=== PATIENT | female | born 1975 | race Caucasian/White ===

== ENCOUNTER 2023-06-23 19:21 | Emergency (ER) | payer OTHER ==
[2023-06-23] MEDS ORDERED: Sodium Chloride 0.9% 1000 ML 1,000 ML IV STA (20:38)
[2023-06-23] MEDS ORDERED: Zofran 4 MG/2 ML VIAL IV ONE (20:38)
[2023-06-23 20:52] LABS: Absolute Neutrophil Ct (ANC) 15.55 x10^3/uL (1.4-6.9); BASOPHIL % 0.3 % (0.0-0.4); Basophil (Absolute #) 0.05 x10^3/uL (0-0.4); Eosinophil (Absolute #) 0 x10^3/uL (0-0.5); IMMATURE GRAN # 0.09 x10^3u/L (0.00-0.03); IMMATURE GRAN % 0.5 % (0.00-0.4); Lymphocyte (Absolute #) 1.66 x10^3/uL (1.0-4.6); Lymphocytes % 8.8 % (24.0-44.0); Mean Cell Volume 82.6 fL (78-100); Mean Corpuscular Hemoglobin 25.4 pg (26-32); Mean Corpuscular Hgb Concent. 30.8 g/dL (32-36); Mean Platelet Volume 8.6 fL (7.5-11.0); Monocyte (Absolute #) 1.51 x10^3/uL (0.0-1.3); Neutrophil % 82.4 % (36.0-66.0); Platelet Count 556 x10^3/uL (150-450); Red Blood Count 4.72 x10^6/uL (4.1-5.4); Red Cell Distribution Width 14.6 % (11.5-14.0); White Blood Count 18.9 x10^3/uL (4.0-10.5)
[2023-06-23] MEDS ORDERED: Zofran 4 MG/2 ML VIAL ONE (20:55)
[2023-06-23] MEDS ORDERED: Sodium Chloride 0.9% 1000 ML 1,000 ML ONE (20:55)
[2023-06-23 21:06] LABS: ALBUMIN 4.4 g/dL (3.5-5.0); ALKALINE PHOSPHATASE 111 U/L (38-126); AMYLASE 67 U/L (30-110); ANION GAP 16.2 MEQ/L (5-15); BLOOD UREA NITROGEN 17 mg/dL (7-17); CHLORIDE 102 mmol/L (98-107); Calcium 9.3 mg/dL (8.4-10.2); Carbon Dioxide 23 mmol/L (22-30); Creatinine 1 0.77 mg/dL (0.52-1.04); EST GLOMERULAR FILTRATION RATE > 60.0 ML/MIN; Glucose 140 mg/dL (74-106); LIPASE 68 U/L (23-300); SGOT/AST 23 U/L (14-36); SGPT/ALT 19 U/L (0-35); SODIUM 137 mmol/L (137-145); Total Protein 7.7 g/dL (6.3-8.2)
[2023-06-23 21:09] VITALS: TEMP 97.9
[2023-06-23 21:18] LABS: Appearance Clear (Clear); Bacteria Moderate /HPF (None Seen); Bilirubin Negative (Negative); Blood Large (Negative); Epithelial Cells Few /HPF (None Seen); Glucose, Urine Negative (Negative); Hyaline Casts NONE SEEN /LPF (0-2); Ketones 15 (Negative); Leukocyte Esterase Negative (Negative); Nitrite Negative (Negative); Ph 5.5 (4.6-8.0); Protein,Urine Dip 100 (Negative); Specific Gravity >=1.030 (1.005-1.030); Urobilinogen 0.2 mg/dL (0.2)
[2023-06-23 21:19] LABS: Budding Yeast Few /HPF (None Seen); RBC 21-50 /HPF (0-5); WBC 0-2 /HPF (0-5)
--- NOTE | 2023-06-23 21:19 | ERPHSYRPT ---
- History of Present Illness Time Seen by Provider: 06/23/23 21:16 Historian: patient, family Exam Limitations: no limitations Patient Subjective Stated Complaint: pt states that right after she got up this morning she started having right lower abdomen pain that is nonradiating, described as constant ache with intermittent throbbing rated 5/10 to 8/10 when at its worst. also reports having nausea and vomiting all day (approx 15times since 0600) and that the contents are less and less the more she vomits liquid that is yellow in color and with mucus. Triage Nursing Assessment: pt ambulated to room 6 independently with slow steady gait. pt is alert and oriented times three, able to move all extremities, able to speak in complete sentences, and with resp even and unlabored. abd soft, nondistended, obese with positive bowel sounds in all quadrants. right lower abdomen pain that is non radiating that she reports feels better when abdomen is pushed on/ palpated. denies cp, sob, difficulty breathing, difficulty with urination or bowel elimination, LBM was 2 days ago and pt states that this is not abnormal for her. Physician History: pt states that right after she got up this morning she started having right lower abdomen pain that is nonradiating, described as constant ache with intermittent throbbing rated 5/10 to 8/10 when at its worst. also reports having nausea and vomiting all day (approx 15times since 0600) and that the contents are less and less the more she vomits liquid that is yellow in color and with mucus. right lower abdomen pain that is non radiating that she reports feels better when abdomen is pushed on/ palpated. denies cp, sob, difficulty breathing, difficulty with urination or bowel elimination, LBM was 2 days ago and pt states that this is not abnormal for her. Timing/Duration: today Activities at Onset: none Quality: cramping Abdominal Pain Onset Location: RLQ Pain Radiation: no radiation Severity of Pain-Max: moderate Severity of Pain-Current: moderate Modifying Factors: Improves With: nothing Associated Symptoms: nausea, vomiting Allergies/Adverse Reactions: No Known Drug Allergies Allergy (Unverified 06/23/23 20:28) Home Medications: Atorvastatin Calcium [Lipitor 20MG Tablet] 20 mg PO HS 06/23/23 [History] Buspirone HCl 5 mg [Buspar 5 mg] 10 mg PO HS 06/23/23 [History] Celecoxib 100 mg [celeBREX 100 MG] 200 mg PO 06/23/23 [History] Metoprolol Tartrate 25 mg [Lopressor 25MG Tab] 25 mg PO 06/23/23 [History] Venlafaxine HCl 37.5 mg [Effexor 37.5 mg] 37.5 mg PO 06/23/23 [History] lisinopriL [Lisinopril] 40 mg PO 06/23/23 [History] Hx Tetanus, Diphtheria Vaccination/Date Given: No Hx Influenza Vaccination/Date Given: Yes Hx Pneumococcal Vaccination/Date Given: No Immunizations Up to Date: Yes Travel Risk - International Travel Have you traveled outside of the country in past 3 weeks: No - Coronavirus Screening Are you exhibiting any of the following symptoms?: No Close contact with a COVID-19 positive Pt in past 14-21 Days: No - Vaccine Status Have you recieved a Covid-19 vaccination: Yes [employer]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 - Vaccination Dates Date of 2cond Vaccination (if applicable): unknown - Review of Systems Constitutional: No Fever, No Chills Eyes: No Symptoms Ears, Nose, & Throat: No Symptoms Respiratory: No Cough, No Dyspnea Cardiac: No Chest Pain, No Edema, No Syncope Abdominal/Gastrointestinal: Abdominal Pain, Nausea, Vomiting, Constipation, Appetite Changes, No Diarrhea Genitourinary Symptoms: No Dysuria Musculoskeletal: No Back Pain, No Neck Pain Skin: No Rash Neurological: No Dizziness, No Focal Weakness, No Sensory Changes Psychological: No Symptoms Endocrine: No Symptoms All Other Systems: Reviewed and Negative - Past Medical History Pertinent Past Medical History: Yes Neurological History: No Pertinent History ENT History: No Pertinent History Cardiac History: High Cholesterol, Hypertension Respiratory History: No Pertinent History Endocrine Medical History: No Pertinent History Musculoskeletal History: No Pertinent History GI Medical History: No Pertinent History History: No Pertinent History Psycho-Social History: Depression Female Reproductive Disorders: No Pertinent History Other Medical History: 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, no symptoms - Past Surgical History Past Surgical History: Yes Neuro Surgical History: No Pertinent History Cardiac: No Pertinent History Respiratory: No Pertinent History Gastrointestinal: Appendectomy Genitourinary: No Pertinent History Musculoskeletal: Joint Replacement Female Surgical History: Section Other Surgical History: x2, left TKA - Social History Smoking Status: Never smoker Exposure to second hand smoke: No Drug Use: none Patient Lives Alone: No - Female History Hx Last Menstrual Period: 06/19/23 Hx Now: No - Nursing Vital Signs Nursing Vital Signs: Initial Vital Signs Temperature 97.9 F 06/23/23 20:31 Pulse Rate 97 H 06/23/23 20:31 Respiratory Rate 16 06/23/23 20:31 Blood Pressure 155/82 06/23/23 20:31 O2 Sat by Pulse Oximetry 98 06/23/23 20:31 Pain Scale Pain Intensity 4 - Physical Exam General Appearance: no apparent distress, alert Eye Exam: PERRL/EOMI, eyes nml inspection Ears, Nose, Throat Exam: normal ENT inspection, pharynx normal, moist mucous membranes Neck Exam: normal inspection, non-tender, supple, full range of motion Respiratory Exam: normal breath sounds, lungs clear, No respiratory distress Cardiovascular Exam: regular rate/rhythm, normal heart sounds Gastrointestinal/Abdomen Exam: soft, normal bowel sounds, tenderness (RLQ), No mass Back Exam: normal inspection, normal range of motion, No CVA tenderness, No vertebral tenderness Extremity Exam: normal inspection, normal range of motion, pelvis stable Neurologic Exam: alert, oriented x 3, cooperative, normal mood/affect, nml cerebellar function, sensation nml, No motor deficits Skin Exam: normal color, warm, dry SpO2: 98 - Course Nursing assessment & vital signs reviewed: Yes - CT Exams Abdomen/Pelvis CT Interpretation: Tele-radiologist Report Ordered Tests: Active Orders 24 hr Category Date Time Status ABDOMEN AND PELVIS W/0 CONTRAS [CT] Stat Exams 06/23/23 20:38 Completed AMYLASE Stat Lab 06/23/23 20:45 Completed CBC W DIFF Stat Lab 06/23/23 20:45 Completed CMP Stat Lab 06/23/23 20:45 Completed CULTURE,URINE Stat Lab 06/23/23 Received LIPASE Stat Lab 06/23/23 20:45 Completed UA W/RFX UR CULTURE Stat Lab 06/23/23 Completed Medication Summary Discontinued Medications Generic Name Dose Route Start Last Admin Trade Name Freq PRN Reason Stop Dose Admin Sodium Chloride 1,000 mls @ 999 mls/hr 06/23/23 20:38 06/23/23 22:06 Sodium Chloride 0.9% 1000 Ml IV 06/23/23 21:38 Infused .Q1H1M STA Infusion Sodium Chloride Confirm 06/23/23 20:55 Sodium Chloride 0.9% 1000 Ml Administered 06/23/23 20:56 Dose 1,000 mls @ ud .ROUTE .STK-MED ONE Ceftriaxone Sodium/Dextrose 1 g in 50 mls @ 100 mls/hr 06/23/23 21:32 06/23/23 22:14 Rocephin 1 Gm-D5w 50 Ml Bag IV 06/23/23 22:01 Infused STAT STA Infusion Ceftriaxone Sodium/Dextrose Confirm 06/23/23 21:38 Rocephin 1 Gm-D5w 50 Ml Bag Administered 06/23/23 21:39 Dose 1 g in 50 mls @ ud IV .STK-MED ONE Ketorolac Tromethamine 30 mg 06/23/23 21:36 06/23/23 21:42 Ketorolac Tromethamine 30 Mg/Ml Inj IV 06/23/23 21:37 30 mg STAT ONE Administration Ketorolac Tromethamine Confirm 06/23/23 21:38 Ketorolac Tromethamine 30 Mg/Ml Inj Administered 06/23/23 21:39 Dose 30 mg .ROUTE .STK-MED ONE Ondansetron HCl 4 mg 06/23/23 20:38 06/23/23 21:01 Ondansetron Hcl 4 Mg/2 Ml Vial IV 06/23/23 20:39 4 mg STAT ONE Administration Ondansetron HCl Confirm 06/23/23 20:55 Ondansetron Hcl 4 Mg/2 Ml Vial Administered 06/23/23 20:56 Dose 4 mg .ROUTE .STK-MED ONE Lab/Rad Data: Laboratory Result Diagrams 06/23/23 20:45 06/23/23 20:45 Laboratory Results 06/23/23 06/23/23 06/23/23 Range/Units Unknown 20:45 20:45 WBC 18.9 H (4.0-10.5) x10^3/uL RBC 4.72 (4.1-5.4) x10^6/uL Hgb 12.0 (12.0-16.0) g/dL Hct 39.0 (35-47) % MCV 82.6 (78-100) fL MCH 25.4 L (26-32) pg MCHC 30.8 L (32-36) g/dL RDW 14.6 H (11.5-14.0) % Plt Count 556 H (150-450) x10^3/uL MPV 8.6 (7.5-11.0) fL Gran % 82.4 H (36.0-66.0) % Immature Gran % (Auto) 0.5 H (0.00-0.4) % Nucleat RBC Rel Count 0.0 (0.00-0.1) % Eos # (Auto) 0 (0-0.5) x10^3/uL Immature Gran # (Auto) 0.09 H (0.00-0.03) x10^3u/L Absolute Lymphs (auto) 1.66 (1.0-4.6) x10^3/uL Absolute Monos (auto) 1.51 H (0.0-1.3) x10^3/uL Absolute Nucleated RBC 0.00 (0.00-0.01) x10^3u/L Lymphocytes % 8.8 L (24.0-44.0) % Monocytes % 8.0 (0.0-12.0) % Eosinophils % 0.0 (0.00-5.0) % Basophils % 0.3 (0.0-0.4) % Absolute Granulocytes 15.55 H (1.4-6.9) x10^3/uL Basophils # 0.05 (0-0.4) x10^3/uL Sodium 137 (137-145) mmol/L Potassium 4.0 (3.5-5.1) mmol/L Chloride 102 (98-107) mmol/L Carbon Dioxide 23 (22-30) mmol/L Anion Gap 16.2 H (5-15) MEQ/L BUN 17 (7-17) mg/dL Creatinine 0.77 (0.52-1.04) mg/dL Estimated GFR > 60.0 ML/MIN Glucose 140 H (74-106) mg/dL Calcium 9.3 (8.4-10.2) mg/dL Total Bilirubin 0.50 (0.2-1.3) mg/dL AST 23 (14-36) U/L ALT 19 (0-35) U/L Alkaline Phosphatase 111 (38-126) U/L Serum Total Protein 7.7 (6.3-8.2) g/dL Albumin 4.4 (3.5-5.0) g/dL Amylase 67 (30-110) U/L Lipase 68 (23-300) U/L Urine Color Yellow (Yellow) Urine Appearance Clear (Clear) Urine pH 5.5 (4.6-8.0) Ur Specific [place] >=1.030 A (1.005-1.030) Urine Protein 100 A (Negative) Urine Glucose (UA) Negative (Negative) mg/dL Urine Ketones 15 A (Negative) Urine Blood Large A (Negative) Urine Nitrite Negative (Negative) Urine Bilirubin Negative (Negative) Urine Urobilinogen 0.2 (0.2) mg/dL Ur Leukocyte Esterase Negative (Negative) U Hyaline Cast (Auto) NONE SEEN (0-2) /LPF Urine Microscopic RBC 21-50 A (0-5) /HPF Urine Microscopic WBC 0-2 (0-5) /HPF Ur Epithelial Cells Few (None Seen) /HPF Urine Bacteria Moderate A (None Seen) /HPF Urine Yeast (Budding) Few A (None Seen) /HPF Urine Culture Reflexed YES (NO) Slides for Path Review YES 0009 CT/ABDOMEN AND PELVIS W/0 CONTRAS CLINICAL HISTORY:right lower quadrant abdominal pain COMPARISON:None. TECHNIQUE:CT scan of the abdomen and pelvis was performed without contrast. Coronal and sagittal reconstructive images were also obtained. FINDINGS: Abdomen: The right kidney is relatively enlarged and hypodense (craniocaudal length of 12.8 cm) with perinephric fat stranding. There is a 6.2 x 7.8 x 1.3 mm calculus (704 HU) in the right ureteropelvic junction with mild upward dilatation of the rest of the renal pelvis and the calyces. The left kidney is unremarkable. The liver is normal in size measuring 17.3 cm craniocaudally. No diffuse or focal parenchymal abnormality. A tiny calcification is seen in segment of the right liver lobe. The portal vein, intrahepatic biliary radicals, and bile ducts are normal. The spleen is normal in size. Multiple tiny parenchymal calcifications are seen. The pancreas and adrenal glands are unremarkable. The gallbladder is distended and shows no definite stones. There is no evidence of wall thickening/ pericholecystic collection. The ascending colon, the transverse colon, and the descending colon visualized small bowel loops are unremarkable. There is no evidence of significant enlargement of the mesenteric or retroperitoneal lymph nodes. Atherosclerotic aorta and some of its branches. There is a small fat-filled umbilical hernia. Pelvis: The urinary bladder is underfilled. The uterus is unremarkable. There is a 2.4 x 2.0 cm cyst in the left ovary. The pelvic vasculature is unremarkable. No evidence of pelvic lymphadenopathy. The osseous structures in the pelvis, lower rib cage, and lumbar spine show no abnormality. IMPRESSION: 1. A 6.2 x 7.8 x 1.3 mm (704 HU) ureteropelvic stone with obstructive nephropathy. 2. Hepatosplenic calcifications 3. Left ovarian cyst. Suggest ultrasound correlation for further evaluation. - Progress Progress: improved, pain not gone completely Discussed with .: Other (Dr Mina (urology) Counseled pt/family regarding: lab results, diagnosis, need for follow-up, rad results Medical Desision Making - Diagnostic Testing Diagnostic test were ordered, analyzed, and reviewed by me: Yes Radiological Interpretation: Teleradiologist Report - Risk of complications The pt has a mod risk of morbidity or mortality based on: Need for minor surgical intervention in patient with know risk factors, Need for major surgery in otherwise healthy patient - Departure Departure Disposition: Transfer Clinical Impression: Obstruction of right ureteropelvic junction (UPJ), Right ureteral calculus, Obstructive nephropathy Condition: Stable Critical Care Time: Yes Critical Care Time(excluding separately billable procedures): Critical 30-74 mins Referrals: ALPHONSO DELGADILLO [Primary Care Provider] - Follow up/PCP as directed Instructions: Kidney Stone, Adult ED Additional Instructions: Discharge/Care Plan LUZ YOO was seen on 06/23/23 in the Emergency Room. The patient was counseled regarding Diagnosis,Lab results, Imaging studies, need for follow up and when to return to the Emergency Room. Prescriptions given: Discharge Note I have spoken with the patient and/or caregivers. I have explained the patient's condition, diagnosis and treatment plan based on the information available to me at this time. I have answered the patient's and/or caregiver's questions and addressed any concerns. The patient and/or caregivers have as good understanding of the patient's diagnosis, condition and treatment plan as can be expected at this point. The vital signs have been stable. The patient's condition is stable and appropriate for discharge from the emergency department. The patient will pursue further outpatient evaluation with the primary care physician or other designated or consulting physician as outlined in the discharge instructions. The patient and/or caregivers are agreeable to this plan of care and follow-up instructions have been explained in detail. The patient and/or caregivers have received these instruction. The patient/and or caregivers are aware that any significant change in condition or worsening of symptoms should prompt an immediate return to this or the closest emergency department or call 911. LUZ YOO was seen on 06/23/23 n the Emergency Room. At that time you were treated for an emergent condition, during your visit Laboratory, Radiology and/or other procedures may have been ordered. It is very important that you follow-up with your Primary Care Physician ALPHONSO DELGADILLO within the next 24-48 hours to review your Emergency Room visit and the final results of testing that was ordered. Some test results such as Urine Cultures, Blood Cultures, and other cultures if ordered will not be finalized for 24-48 hours. If you do not have a Primary Care Provider please call the medical records department at [phone] ext [phone] to obtain a copy of your results or you may sign into our patient portal to obtain these results by visiting us @ [email or web address] and completing the following steps: 1. Click on the Patient Portal link 2. Click the Patient Self Enrollment Link to complete the enrollment form and entering your 3. Once the enrollment form is completed you will receive an email with a temporary ID and password at the email address you provided. 4. Next choose a user name and password. Your user name must be at least 4 kylah acters long and your password must be at least 4 characters long. 5. Choose a security question from the list and provide your answer to the question. If you already have signed into the Health Portal you may access your Health Care Information 11/06 by the following steps: 1. Login to our website @ [email or web address] 2. Enter your original user name and password. FAQS The [facility] Health Portal is an online tool that contains your Lab Results, Radiology Reports, Visit History, Discharge Instructions and Health Summary Lab and Radiology Results will not be available for 72 hours on the portal. The Portal is a secure site, passwords are encryted and URLs are re-written so they cannot be copied and pasted. You and authorized family members are the only ones who can access your Portal. Also there is a timeout feature that protects your information if you leave the Portal page open. If you have technical difficulty please use the Contact Us link on the page this will allow you to submit any questions you have regarding the Portal or you may contact the Medical Record Department at [phone] ext [phone].
[2023-06-23 21:20] LABS: ADD URINE CULTURE? YES (NO)
[2023-06-23 21:28] LABS: Slide Review 1 YES
[2023-06-23] MEDS ORDERED: ROCEPHIN 1 Gm-D5w 50 ml Bag** 1 G/50 ML IVPB IV STA (21:32)
[2023-06-23] MEDS ORDERED: TORAdol 30 mg Injection IV ONE (21:36)
[2023-06-23] MEDS ORDERED: ROCEPHIN 1 Gm-D5w 50 ml Bag** 1 G/50 ML IVPB IV ONE (21:38)
[2023-06-23] MEDS ORDERED: TORAdol 30 mg Injection ONE (21:38)
--- NOTE | 2023-06-23 21:46 | XRAY ---
CLINICAL HISTORY:right lower quadrant abdominal pain COMPARISON:None. TECHNIQUE:CT scan of the abdomen and pelvis was performed without contrast. Coronal and sagittal reconstructive images were also obtained. FINDINGS: Abdomen: The right kidney is relatively enlarged and hypodense (craniocaudal length of 12.8 cm) with perinephric fat stranding. There is a 6.2 x 7.8 x 1.3 mm calculus (704 HU) in the right ureteropelvic junction with mild upward dilatation of the rest of the renal pelvis and the calyces. The left kidney is unremarkable. The liver is normal in size measuring 17.3 cm craniocaudally. No diffuse or focal parenchymal abnormality. A tiny calcification is seen in segment of the right liver lobe. The portal vein, intrahepatic biliary radicals, and bile ducts are normal. The spleen is normal in size. Multiple tiny parenchymal calcifications are seen. The pancreas and adrenal glands are unremarkable. The gallbladder is distended and shows no definite stones. There is no evidence of wall thickening/ pericholecystic collection. The ascending colon, the transverse colon, and the descending colon visualized small bowel loops are unremarkable. There is no evidence of significant enlargement of the mesenteric or retroperitoneal lymph nodes. Atherosclerotic aorta and some of its branches. There is a small fat-filled umbilical hernia. Pelvis: The urinary bladder is underfilled. The uterus is unremarkable. There is a 2.4 x 2.0 cm cyst in the left ovary. The pelvic vasculature is unremarkable. No evidence of pelvic lymphadenopathy. The osseous structures in the pelvis, lower rib cage, and lumbar spine show no abnormality. IMPRESSION: 1. A 6.2 x 7.8 x 1.3 mm (704 HU) ureteropelvic stone with obstructive nephropathy. 2. Hepatosplenic calcifications 3. Left ovarian cyst. Suggest ultrasound correlation for further evaluation. The [facility] ER was called at [phone] at 08:40 PM PHARMACIST ASSISTANT, 06/23/2023 and results were verbally communicated to Kane Hanks. Electronically Signed by: Rachel Shirley MD. (06/23/2023 20:45:08 PHARMACIST ASSISTANT)
[2023-06-23 23:04] VITALS: RESP 18
[2023-06-24 00:08] VITALS: BP 124/70; PULSE 79; O2SAT 96
== END 2023-06-24 00:52 | disposition short-term general hospital (02) ==
LOC: ED 19:21
DX: N20.1 Calculus of ureter (principal); N13.8 Other obstructive and reflux uropathy; R10.31 Right lower quadrant pain; R11.2 Nausea with vomiting, unspecified; E78.5 Hyperlipidemia, unspecified; I10 Essential (primary) hypertension; Z79.899 Other long term (current) drug therapy
CPT/HCPCS: 36415; 74176; 80053; 81001; 82150; 83690; 85025; 87086; 96360; 96365; 96374; 96375; 99285; 99291; J0696; J1885; J2405

== ENCOUNTER 2025-10-07 08:43 | Day surgery (SDC) | payer OTHER ==
[2025-10-07] MEDS ORDERED: BUPIVACAINE 0.5% VIAL IJ ONE (08:44)
[2025-10-07] MEDS ORDERED: LIDOCAINE HCL 1% 50 MG/5 ML VL IJ ONE (08:44)
[2025-10-07] MEDS ORDERED: methylPREDNISolone acetate IM ONE (08:44)
[2025-10-07 09:34] LABS: HCG URINE TEST NEGATIVE (NEGATIVE)
[2025-10-07] MEDS ORDERED: propofoL IV ONE (10:48)
--- NOTE | 2025-10-07 12:08 | XRAY ---
Indication: Right SI joint and piriformis injection Intraoperative fluoroscopy provided for 26 seconds. 3 digital spot image submitted for interpretation demonstrates posterior needle tips projecting over right SI joint and right piriformis. Small amount of contrast injected for both needle tip placement. Correlate with intraoperative findings/report.
--- NOTE | 2025-10-07 13:30 | XRAY ---
26 seconds of fluoroscopy was used in surgery for a right sacroiliac joint and piriformis injection.
[2025-10-07] MEDS ORDERED: Lactated Ringers 1,000 ML IV ONE (13:42)
== END 2025-10-07 11:20 | disposition home or self-care (01) ==
LOC: SDC-PAIN 08:43
PROVIDERS: ATTEND Psychiatry & Neurology Pain Medicine
DX: M46.1 Sacroiliitis, not elsewhere classified (principal); E11.9 Type 2 diabetes mellitus without complications; M79.18 Myalgia, other site